=== PATIENT | male | born 1960 | race Caucasian/White ===

== ENCOUNTER → 2021-06-19 10:08 | Outpatient (BNVA) | payer OTHER, SELFPAY | PROVIDERS: Visit Provider Internal Medicine | DX: F11.20 Opioid dependence, uncomplicated (principal); Z51.81 Encounter for therapeutic drug level monitoring; Z79.899 Other long term (current) drug therapy | CPT/HCPCS: 80305 ==

== ENCOUNTER 2021-06-26 10:33 | Outpatient (REF) | payer OTHER, SELFPAY ==
[2021-06-26 17:08] LABS: Fentanyl, urine Not Detected (Not Detect)
== END 2021-06-26 10:34 | disposition home or self-care (01) ==
LOC: CF 10:33
PROVIDERS: Visit Provider Internal Medicine
DX: F11.20 Opioid dependence, uncomplicated (principal); Z79.899 Other long term (current) drug therapy
CPT/HCPCS: 36415; 80307

== ENCOUNTER → 2021-07-04 16:11 | Outpatient (BNVA) | payer OTHER, SELFPAY | PROVIDERS: Visit Provider Nurse Practitioner Psychiatric/Mental Health | DX: Z51.81 Encounter for therapeutic drug level monitoring (principal); F11.90 Opioid use, unspecified, uncomplicated | CPT/HCPCS: 80305 ==

== ENCOUNTER 2021-07-10 15:56 | Outpatient (REF) | payer OTHER, SELFPAY ==
[2021-07-10 18:28] LABS: Fentanyl, urine Not Detected (Not Detect)
== END 2021-07-10 15:57 | disposition home or self-care (01) ==
LOC: HO.LNP 15:56
PROVIDERS: PCP Hospitalist; Visit Provider Internal Medicine
DX: F11.20 Opioid dependence, uncomplicated (principal)
CPT/HCPCS: 80305; 80307

== ENCOUNTER → 2021-07-17 16:00 | Outpatient (BNVA) | payer OTHER, SELFPAY | PROVIDERS: Visit Provider Internal Medicine | DX: Z51.81 Encounter for therapeutic drug level monitoring (principal); F11.90 Opioid use, unspecified, uncomplicated | CPT/HCPCS: 80305 ==

== ENCOUNTER → 2021-07-31 14:46 | Outpatient (BNVA) | payer OTHER, SELFPAY | PROVIDERS: Visit Provider Internal Medicine | DX: F11.99 Opioid use, unspecified with unspecified opioid-induced disorder (principal); Z87.891 Personal history of nicotine dependence; Z88.6 Allergy status to analgesic agent; Z51.81 Encounter for therapeutic drug level monitoring | CPT/HCPCS: 80305 ==

== ENCOUNTER → 2021-08-14 15:48 | Outpatient (BNVA) | payer OTHER, SELFPAY | PROVIDERS: Visit Provider Internal Medicine | DX: F11.99 Opioid use, unspecified with unspecified opioid-induced disorder (principal); Z87.891 Personal history of nicotine dependence; Z88.6 Allergy status to analgesic agent; Z51.81 Encounter for therapeutic drug level monitoring | CPT/HCPCS: 80305 ==

== ENCOUNTER → 2021-08-28 15:44 | Outpatient (BNVA) | payer OTHER, SELFPAY | PROVIDERS: Visit Provider Internal Medicine | DX: F11.20 Opioid dependence, uncomplicated (principal); Z51.81 Encounter for therapeutic drug level monitoring; Z79.899 Other long term (current) drug therapy | CPT/HCPCS: 80305 ==

== ENCOUNTER → 2021-09-25 13:49 | Outpatient (BNVA) | payer OTHER, SELFPAY | PROVIDERS: Visit Provider Internal Medicine | DX: F11.20 Opioid dependence, uncomplicated (principal); Z51.81 Encounter for therapeutic drug level monitoring; Z79.899 Other long term (current) drug therapy | CPT/HCPCS: 80305 ==

== ENCOUNTER → 2021-10-25 14:58 | Outpatient (BNVA) | payer OTHER, SELFPAY | PROVIDERS: Visit Provider Internal Medicine | DX: Z51.81 Encounter for therapeutic drug level monitoring (principal); F11.20 Opioid dependence, uncomplicated | CPT/HCPCS: 80305 ==

== ENCOUNTER → 2021-11-22 15:26 | Outpatient (BNVA) | payer OTHER, SELFPAY | PROVIDERS: Visit Provider Internal Medicine | DX: Z51.81 Encounter for therapeutic drug level monitoring (principal); F11.20 Opioid dependence, uncomplicated | CPT/HCPCS: 80305 ==

== ENCOUNTER → 2021-12-20 15:04 | Outpatient (BNVA) | payer OTHER, SELFPAY | PROVIDERS: Visit Provider Internal Medicine | DX: Z51.81 Encounter for therapeutic drug level monitoring (principal); F11.20 Opioid dependence, uncomplicated | CPT/HCPCS: 80305 ==

== ENCOUNTER → 2021-12-23 15:31 | Outpatient (BNVA) | payer OTHER, SELFPAY | PROVIDERS: Visit Provider Internal Medicine | DX: Z51.81 Encounter for therapeutic drug level monitoring (principal); F11.20 Opioid dependence, uncomplicated | CPT/HCPCS: 80305; 96372 ==

== ENCOUNTER → 2022-01-21 15:19 | Outpatient (BNVA) | payer OTHER, SELFPAY | PROVIDERS: Visit Provider Internal Medicine | DX: Z51.81 Encounter for therapeutic drug level monitoring (principal); F11.20 Opioid dependence, uncomplicated | CPT/HCPCS: 80305; 96372; Q9992 ==

== ENCOUNTER → 2022-02-18 15:43 | Outpatient (BNVA) | payer OTHER, SELFPAY | PROVIDERS: Visit Provider Internal Medicine | DX: Z51.81 Encounter for therapeutic drug level monitoring (principal); F11.20 Opioid dependence, uncomplicated | CPT/HCPCS: 80305; 96372; Q9991 ==

== ENCOUNTER → 2022-03-18 15:41 | Outpatient (BNVA) | payer OTHER, SELFPAY | PROVIDERS: Visit Provider Internal Medicine | DX: Z51.81 Encounter for therapeutic drug level monitoring (principal); F11.20 Opioid dependence, uncomplicated | CPT/HCPCS: 80305; 96372; Q9991 ==

== ENCOUNTER → 2022-04-14 15:28 | Outpatient (BNVA) | payer OTHER, SELFPAY | PROVIDERS: Visit Provider Internal Medicine | DX: Z51.81 Encounter for therapeutic drug level monitoring (principal); F11.20 Opioid dependence, uncomplicated; K59.00 Constipation, unspecified | CPT/HCPCS: 80305; 96372; Q9991 ==

== ENCOUNTER → 2022-07-09 15:38 | Outpatient (BNVA) | payer OTHER, SELFPAY | PROVIDERS: Visit Provider Internal Medicine | DX: Z51.81 Encounter for therapeutic drug level monitoring (principal); F11.20 Opioid dependence, uncomplicated | CPT/HCPCS: 96372 ==

== ENCOUNTER → 2022-08-06 14:57 | Outpatient (BNVA) | payer OTHER, SELFPAY | PROVIDERS: Visit Provider Internal Medicine | DX: F11.99 Opioid use, unspecified with unspecified opioid-induced disorder (principal); Z51.81 Encounter for therapeutic drug level monitoring | CPT/HCPCS: 96372 ==

== ENCOUNTER → 2022-09-03 11:31 | Outpatient (BNVA) | payer OTHER, SELFPAY | PROVIDERS: Visit Provider Internal Medicine | DX: F11.20 Opioid dependence, uncomplicated (principal); Z51.81 Encounter for therapeutic drug level monitoring; Z79.899 Other long term (current) drug therapy | CPT/HCPCS: 96372 ==

== ENCOUNTER 2022-09-03 17:23 | Outpatient (REF) | payer OTHER, SELFPAY ==
[2022-09-03 17:57] LABS: Fentanyl, urine Not Detected (Not Detect)
== END 2022-09-03 17:24 | disposition home or self-care (01) ==
LOC: HO.LNP 17:23
PROVIDERS: Visit Provider Internal Medicine
DX: F11.99 Opioid use, unspecified with unspecified opioid-induced disorder (principal)
CPT/HCPCS: 80307

== ENCOUNTER → 2022-10-07 15:22 | Outpatient (BNVA) | payer OTHER, SELFPAY | PROVIDERS: Visit Provider Nurse Practitioner Psychiatric/Mental Health | DX: F11.20 Opioid dependence, uncomplicated (principal); Z51.81 Encounter for therapeutic drug level monitoring; Z79.899 Other long term (current) drug therapy | CPT/HCPCS: 80305; 96372 ==

== ENCOUNTER → 2022-11-13 15:28 | Outpatient (BNVA) | payer OTHER, SELFPAY | PROVIDERS: Visit Provider Nurse Practitioner Psychiatric/Mental Health | DX: Z51.81 Encounter for therapeutic drug level monitoring (principal); F11.20 Opioid dependence, uncomplicated | CPT/HCPCS: 96372 ==

== ENCOUNTER → 2022-12-18 15:29 | Outpatient (BNVA) | payer OTHER, SELFPAY | PROVIDERS: Visit Provider Nurse Practitioner Psychiatric/Mental Health | DX: Z51.81 Encounter for therapeutic drug level monitoring (principal); F11.20 Opioid dependence, uncomplicated | CPT/HCPCS: 80305; 96372 ==

== ENCOUNTER 2023-09-15 16:24 | Outpatient (AMB) | payer OTHER, SELFPAY ==
--- NOTE | 2023-09-15 16:26 | A.OFFVIS_ITS ---
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 Allergies aspirin Adverse Reaction (Unknown, Verified 09/15/23 16:30) sensitivity Medication List - Last Reconciled 09/15/23 by Rosalie Barrett CNP atorvastatin 40 mg PO DAILY docusate sodium (Colace) 100 mg PO BID 30 days fluoxetine 60 mg PO QAM hydrochlorothiazide 25 mg PO DAILY lactulose 10 grams (15 mL) PO DAILY PRN lisinopril 20 mg PO DAILY naloxone 4 mg/actuation (Narcan) 4 mg intranasal Q2M PRN 30 days HPI MAT Restart/Walk in HPI Details Patient presets as a walk in stating he would like to restart suboxone He was previously a patient of [facility] and at last appt in December recieved Sublocade 100mg injection He states that about 3 months ago, 6 months after last injection, he began to experience muscle spasms in his legs. Over time they have progressively worsened. He reports his PCP prescribed Gabapentin with no relief Denies any other medication trials *Of note, he reproted to RN that during this time he was transitioned from fluoxetine to sertraline. He d/c sertraline 200mg without taper and has since restarted fluoxetine He does not feel any of these medication changes contributed to his sx at all. Current med list lisinopril 20mg prozac 80mg HCTZ 25mg QD Atorvastatin 40mg QD Discussed trial of tizanidine before restarting buprenorphine Patient agreeable [facility] Medical History (Updated 09/16/23 @ 13:49 by Rosalie Barrett CNP) Constipation Opioid use disorder Social History Patient Tobacco Use Status: Former Tobacco user Review of Systems Const Reports as per HPI and Reports no additional complaints Physical Exam Vital Signs: Last Vital Signs Pulse 80 09/15/23 16:29 BP 124/76 09/15/23 16:29 Pulse Ox 98 09/15/23 16:29 Oxygen Delivery Method Room Air 09/15/23 16:29 Const General: cooperative, healthy appearing and no acute distress Orientation/consciousness: patient oriented x3 Neuro General: patient oriented x3 Assessment & Plan Assessment & Plan (1) Muscle spasm: Code(s): M62.838 - Other muscle spasm Plan: * tizanidine 4mg QHS * patient to call on to update and determine next steps (2) Opioid use disorder, mild, in sustained remission: Code(s): F11.11 - Opioid abuse, in remission Plan: * has been in sustained recovery for several years Medications: New tizanidine 4 mg PO BEDTIME PRN 10 caps 0RF muscle spasticity Coding Level of Care Code Est Pt Level 3 (60901) Diagnoses Muscle spasm M62.838 Opioid use disorder, mild, in sustained remission F11.11
[2023-09-15 16:29] VITALS: BP 124/76; PULSE 80; O2SAT 98
== END 2023-09-15 16:58 | disposition home or self-care (01) ==
PROVIDERS: PCP Internal Medicine; Visit Provider Nurse Practitioner Psychiatric/Mental Health
DX: F11.11 Opioid abuse, in remission (principal); M62.838 Other muscle spasm
CPT/HCPCS: 99213

== ENCOUNTER → 2023-09-15 16:24 | Outpatient (BNVA) | payer OTHER, SELFPAY | PROVIDERS: PCP Internal Medicine; Visit Provider Nurse Practitioner Psychiatric/Mental Health ==

== ENCOUNTER 2023-09-21 15:28 | Outpatient (AMB) | payer OTHER, SELFPAY ==
--- NOTE | 2023-09-21 15:31 | A.OFFVIS_ITS ---
Intake Intake Visit Reasons: MAT Visit Toddler Caregiver Required: No Allergies aspirin Adverse Reaction (Unknown, Verified 09/15/23 16:30) sensitivity HPI MAT Visit HPI Details Patient presents for follow up Still having restless legs at night Bought suboxone and took 2mg and sx resolved would like to restart suboxone [facility] Medical History (Updated 09/16/23 @ 13:49 by Rosalie Barrett CNP) Constipation Opioid use disorder Social History Patient Tobacco Use Status: Former Tobacco user Review of Systems Const Reports as per HPI Physical Exam Const General: cooperative, healthy appearing and no acute distress Orientation/consciousness: patient oriented x3 Neuro General: patient oriented x3 Assessment & Plan Assessment & Plan (1) Opioid use disorder, mild, in sustained remission: Code(s): F11.11 - Opioid abuse, in remission Plan: * suboxone 2 mg QD * follow up 4 weeks Medications: New buprenorphine-naloxone 2-0.5 mg (Suboxone) 1 film sublingual DAILY 30 ea 0RF Coding Level of Care Code Est Pt Level 3 (27016) Diagnoses Opioid use disorder, mild, in sustained remission F11.11
== END 2023-09-21 15:51 | disposition home or self-care (01) ==
PROVIDERS: PCP Internal Medicine; Visit Provider Nurse Practitioner Psychiatric/Mental Health
DX: F11.11 Opioid abuse, in remission (principal)
CPT/HCPCS: 99213

== ENCOUNTER → 2023-09-21 15:28 | Outpatient (BNVA) | payer OTHER, SELFPAY | PROVIDERS: PCP Internal Medicine; Visit Provider Nurse Practitioner Psychiatric/Mental Health ==

== ENCOUNTER 2023-10-19 15:10 | Outpatient (AMB) | payer OTHER, SELFPAY ==
--- NOTE | 2023-10-19 15:15 | A.OFFVISCC_ITS ---
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 Denies any side effects, including constipation. Enjoyed 2 week vacation with family over Beth and New Years. No questions or concerns at this time --will be discussing with PCP if she will take over prescribing suboxone. [facility] Medical History (Updated 10/22/23 @ 09:57 by Rosalie Barrett CNP) Constipation Opioid use disorder Social History Patient Tobacco Use Status: Former Tobacco user Review of Systems Const Reports as per HPI and Reports no additional complaints Physical Exam Vital Signs: Last Vital Signs Pulse 74 10/19/23 15:16 BP 116/68 10/19/23 15:16 Pulse Ox 95 10/19/23 15:16 Oxygen Delivery Method Room Air 10/19/23 15:16 Const General: cooperative and healthy appearing Orientation/consciousness: patient oriented x3 Neuro General: patient oriented x3 Assessment & Plan Assessment & Plan (1) Opioid use disorder, mild, in sustained remission: Code(s): F11.11 - Opioid abuse, in remission Plan: * continue suboxone at current dose * will discuss with PCP regarding ongoing prescriptions * follow up 2 months Medications: Refilled buprenorphine-naloxone 2-0.5 mg (Suboxone) 1 film sublingual DAILY 30 ea 1RF Coding Level of Care Code Est Pt Level 3 (62547) Diagnoses Opioid use disorder, mild, in sustained remission F11.11
[2023-10-19 15:16] VITALS: BP 116/68; PULSE 74; O2SAT 95
== END 2023-10-19 15:35 | disposition home or self-care (01) ==
PROVIDERS: PCP Internal Medicine; Visit Provider Nurse Practitioner Psychiatric/Mental Health
DX: F11.11 Opioid abuse, in remission (principal)
CPT/HCPCS: 99213

== ENCOUNTER → 2023-10-19 15:10 | Outpatient (BNVA) | payer OTHER, SELFPAY | PROVIDERS: PCP Internal Medicine; Visit Provider Nurse Practitioner Psychiatric/Mental Health ==

== ENCOUNTER 2023-12-30 15:53 | Outpatient (AMB) | payer OTHER, SELFPAY ==
--- NOTE | 2023-12-30 15:43 | A.OFFVISCC_ITS ---
Intake Vital Signs 12/30/23 15:46 BP 120/70 Blood Pressure Location Lt brachial Position Sitting Respiration 20 Pulse 88 Pulse Source Pulse Oximeter Pulse Oximetry (%) 98 Oxygen Delivery Method Room Air Intake Visit Reasons: mat visit Allergies aspirin Adverse Reaction (Unknown, Verified 10/19/23 15:18) sensitivity HPI mat visit HPI Details Patient presents for MAT visit Has no recovery concerns Reports he has had no incidents of restless legs Has had cold sore to right side of lower lip x 2 weeks, reports this happens frequently at change of season for him Going to the gym, working on getting fit for golf [facility] Medical History (Updated 12/30/23 @ 16:05 by Pam Iverson NP) Constipation Opioid use disorder Social History Patient Tobacco Use Status: Former Tobacco user Review of Systems Const Reports as per HPI Physical Exam Vital Signs: Last Vital Signs Pulse 88 12/30/23 15:46 Resp 20 12/30/23 15:46 BP 120/70 12/30/23 15:46 Pulse Ox 98 12/30/23 15:46 Oxygen Delivery Method Room Air 12/30/23 15:46 Const General: cooperative and comfortable Skin Lesions: lesion noted (right side lower lip) Psych Appearance: grossly normal and well kempt Mental Status: mental status grossly normal Speech and movement: Normal speech and movement present Affect: normal affect Thought process: Normal thought process present Thought content: Normal thought content present Assessment & Plan Assessment & Plan (1) Herpes simplex: Code(s): B00.9 - Herpesviral infection, unspecified Plan: -Acyclovir rx sent to pharmacy, pt has previously taken with good effect (2) Opioid use disorder, mild, in sustained remission: Code(s): F11.11 - Opioid abuse, in remission Plan: -Mass pat reviwewed, no refill indicated at this time -Follow up 3 months -Reviewed he can call with questions or concerns Medications: New acyclovir 400 mg PO TID 15 tabs 0RF Discontinued tizanidine Discontinued Reason: Patient Completed Course 4 mg PO BEDTIME PRN 10 caps 0RF muscle spasticity Coding Level of Care Code Est Pt Level 3 (62087) Diagnoses Herpes simplex B00.9 Opioid use disorder, mild, in sustained remission F11.11
[2023-12-30 15:46] VITALS: BP 120/70; PULSE 88; RESP 20; O2SAT 98
== END 2023-12-30 15:59 | disposition home or self-care (01) ==
PROVIDERS: PCP Internal Medicine; Visit Provider Nurse Practitioner Family
DX: F11.11 Opioid abuse, in remission (principal); B00.9 Herpesviral infection, unspecified
CPT/HCPCS: 99213

== ENCOUNTER 2024-03-23 16:00 | Outpatient (AMB) | payer OTHER, SELFPAY ==
--- NOTE | 2024-03-23 16:00 | MHC.AM.SUB ---
Vital Signs 03/23/24 16:03 BP 152/84 H Blood Pressure Location Lt brachial Pulse 84 Pulse Source Pulse Oximeter Pulse Oximetry (%) 94 Oxygen Delivery Method Room Air Intake Visit Reasons: mat visit Allergies aspirin Adverse Reaction (Unknown, Verified 10/19/23 15:18) sensitivity HPI HPI mat visit: Details: Patient presents for MAT appointment Has been tolerating 2mg suboxone daily Denies any concerns for side effects Has been keeping busy playing golf Working on losing weight HPI Comments Details: Patient presents for MAT visit [facility] Medical History (Updated 12/30/23 @ 16:05 by Pam Iverson NP) Constipation Opioid use disorder Social History Patient Tobacco Use Status: Former Tobacco user Review of Systems Const Reports as per HPI Physical Exam Const General: cooperative and no acute distress Resp Effort & Inspection: normal respiratory effort and able to speak in complete sentences Psych Appearance: grossly normal Mental Status: mental status grossly normal Speech and movement: Normal speech and movement present Affect: normal affect Attitude: cooperative Thought process: Normal thought process present Assessment & Plan Assessment & Plan (1) Opioid use disorder, mild, in sustained remission: Code(s): F11.11 - Opioid abuse, in remission Category: Medical Plan: -ANNIE ricks reviewed -Refill buprenorphine sent to pharmacy -Follow up 4 months Medications: Refilled buprenorphine-naloxone 2-0.5 mg (Suboxone) 1 film sublingual DAILY 30 ea 3RF
[2024-03-23 16:03] VITALS: BP 152/84; PULSE 84; O2SAT 94
== END 2024-03-23 16:11 | disposition home or self-care (01) ==
PROVIDERS: PCP Internal Medicine; Visit Provider Nurse Practitioner Family
DX: F11.11 Opioid abuse, in remission (principal)
CPT/HCPCS: 99213

== ENCOUNTER → 2024-03-23 16:00 | Outpatient (BNVA) | payer OTHER, SELFPAY | PROVIDERS: PCP Internal Medicine; Visit Provider Nurse Practitioner Family ==

== ENCOUNTER 2024-07-13 15:15 | Outpatient (AMB) | payer OTHER, SELFPAY ==
--- NOTE | 2024-07-13 15:53 | A.OFFVISCC_ITS ---
Intake Visit Reasons: mat visit Allergies aspirin Adverse Reaction (Unknown, Verified 10/19/23 15:18) sensitivity HPI HPI mat visit: Details: Patient presents for follow up increased dose to 2mg BID Tolerating dose no issues with sleep PFSH Medical History (Updated 12/30/23 @ 16:05 by Pam Iverson NP) Constipation Opioid use disorder Social History Patient Tobacco Use Status: Former Tobacco user Review of Systems Const Reports as per HPI and Reports no additional complaints Physical Exam Const General: cooperative and no acute distress Psych Appearance: grossly normal Mental Status: mental status grossly normal Speech and movement: Normal speech and movement present Affect: normal affect Attitude: cooperative Thought process: Normal thought process present Assessment & Plan Assessment & Plan (1) Opioid use disorder, mild, in sustained remission: Code(s): F11.11 - Opioid abuse, in remission Category: Medical Plan: * continue suboxone at current dose * follow up 4 months Medications: Changed From buprenorphine-naloxone 2-0.5 mg 1 film sublingual DAILY 30 ea 3RF To buprenorphine-naloxone 2-0.5 mg (Suboxone) 1 film sublingual BID 60 ea 3RF
== END 2024-07-13 16:21 | disposition home or self-care (01) ==
PROVIDERS: PCP Internal Medicine; Visit Provider Nurse Practitioner Psychiatric/Mental Health
DX: F11.11 Opioid abuse, in remission (principal)
CPT/HCPCS: 99213

== ENCOUNTER → 2024-07-13 15:15 | Outpatient (BNVA) | payer OTHER, SELFPAY | PROVIDERS: PCP Internal Medicine; Visit Provider Nurse Practitioner Psychiatric/Mental Health ==

== ENCOUNTER 2024-10-31 15:36 | Outpatient (AMB) | payer OTHER, SELFPAY ==
--- NOTE | 2024-10-31 15:51 | MHC.AM.SUB ---
Intake Visit Reasons: mat visit Allergies aspirin Adverse Reaction (Unknown, Verified 10/19/23 15:18) sensitivity HPI HPI mat visit: Details: Patient presents for follow up Currently prescribed Suboxone 2mg BID Tolerating current dose Tried to lower dose, but found that he was unable to sleep Review of Systems Const Reports as per HPI Physical Exam Const General: cooperative and no acute distress Psych Appearance: grossly normal Mental Status: mental status grossly normal Speech and movement: Normal speech and movement present Affect: normal affect Attitude: cooperative Thought process: Normal thought process present [facility] Medical History (Updated 12/30/23 @ 16:05 by Pam Iverson NP) Constipation Opioid use disorder Social History Patient Tobacco Use Status: Former Tobacco user Assessment & Plan Assessment & Plan (1) Opioid use disorder, mild, in sustained remission: Code(s): F11.11 - Opioid abuse, in remission Category: Medical Plan: continue suboxone at current dose follow up 4 months
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
--- OUTSIDE RECORDS SUMMARY | 2024-10-31 19:34 | XMS_ITS | Continuity of Care Document ---
Author Organization [facility] [place] Address [address] [place] [address]- Care Team Providers Care Ethylbenzene Cracking Supervisor Name Role Phone Enrique Rolon DO Primary Care Physician [phone] Encounter [facility] Date(s): 09/23/24 - 10/23/24 [facility] [place] Adult [address] [place] [address]- Encounter Type: Triage Allergies, Adverse Reactions, Alerts Substance Criticality Severity Reaction Reaction Severity Status aspirin upset stomach Active Immunizations Given and Recorded Vaccine Date Status Refusal Reason tetanus-diphtheria toxoids (Td) 01/23/22 Given tetanus-diphtheria toxoids (Td) 05/01/13 Recorded SARS-CoV-2 (COVID-19) mRNA BNT-162b2 vac 10/12/21 Recorded SARS-CoV-2 (COVID-19) mRNA BNT-162b2 vac 01/09/21 Recorded SARS-CoV-2 (COVID-19) mRNA BNT-162b2 vac 12/19/20 Recorded influenza virus vaccine, inactivated 09/05/16 Give n influenza virus vaccine, inactivated 11/06/15 Give n FluLaval (oldterm) 06/02/12 Given Tet/Diphth/Acel, Pertussis (oldterm) 10/17/10 Give n Fluzone (oldterm) 10/12/09 Given Medications Abilify 5 mg oral tablet 5 mg, 1, tablet, By Mouth, Daily, # 90 tablet, Refills 3, Tot. Refills 3, Maintenance, 09/15/23 3:40:00 PM EST, Route to Pharmacy Electronically, [facility], Partial fill upon patient request if the prescription is for a schedule II opioid drug., 170, cm, 09/15/23 15:25:00 EST, Height, 109.198, kg, 06/09/23 10:32:00 EDT, Dry Weight Start Date: 09/15/23 Status: Ordered Quantity: 90.0 Unit: tablet Repeat number: 4 Indication: Major depressive disorder, single episode, severe without psychotic features acyclovir 400 mg oral tablet 1 tablet = 400 mg, By Mouth, 3 times a day, PRN cold sores, # 30 tablet, 2 Refills, Maintenance, 02/27/22 3:48:00 PM EDT, Tablet, [facility], 170, cm, 01/23/22 7:17:00 EDT, Height, 99, kg, 04/20/20 8:02:00 EDT, Dry Weight Start Date: 02/27/22 Status: Ordered Quantity: 30.0 Unit: tablet Repeat number: 3 atorvastatin 40 mg oral tablet 1 tablet, By Mouth, Daily, # 90 tablet, 3 Refills, Maintenance, 08/29/24 1:13:00 PM EST, [facility], 170, cm, 06/20/24 16:00:00 EDT, Height, 109.198, kg, 06/09/23 10:32:00 EDT, Dry Weight Start Date: 08/29/24 Status: Ordered Quantity: 90.0 Unit: tablet Repeat number: 1 FLUoxetine 40 mg oral capsule 2 capsule = 80 mg, By Mouth, Daily, # 180 capsule, 0 Refills, Maintenance, 10/20/24 12:17:00 PM EST,Capsule, [facility], Partial fill upon patient request if the prescription is for a schedule II opioid drug., 170, cm, 06/20/24 16:00:00 EDT, Height, 109.198, kg, 06/09/23 10:32:00 EDT, Dry Weight Start Date: 10/20/24 Status: Ordered Quantity: 180.0 Unit: capsule Repeat number: 1 Indication: Major depressive disorder, single episode, severe without psychotic features hydrochlorothiazide 25 mg oral tablet 1, tablet, By Mouth, Daily, # 90 tablet, Refills 0, Maintenance, 09/23/24 3:51:00 PM EST, Route to Pharmacy Electronically, [email or web address], 170, cm, 06/20/24 16:00:00 EDT, Height, 109.198, kg, 06/09/23 10:32:00 EDT, Dry Weight Start Date: 09/23/24 Status: Ordered Quantity: 90.0 Unit: tablet Repeat number: 1 hydrOXYzine hydrochloride 25 mg oral tablet 1 tablet, By Mouth, 4 times a day, PRN NEEDED FOR ANXIETY, MAY TAKE 2 TABLETS 4 TIMES A DAY NEEDED, # 90 tablet, 5 Refills, Maintenance, 10/06/23 9:45:00 AM EST, [email or web address], 170,cm, 09/15/23 15:25:00 EST, Height, 109.198, kg, 06/09/23 10:32:00 EDT, Dry Weight Start Date: 10/06/23 Status: Ordered Quantity: 90.0 Unit: tablet Repeat number: 1 Knee brace - left Knee brace - left, See Instructions, # 1 each, Refills 0, Tot. Refills 0, Maintenance, Neoprene brace with hole for patella, no hinges, strap above and below patella, horseshoe-shaped pad with opening inferiorly, 09/05/16 3:25:43 PM EST, Compound Start Date: 09/05/16 Status: Ordered Quantity: 1.0 Unit: each Repeat number: 1 lisinopril 20 mg oral tablet 1, tablet, By Mouth, Daily, # 90 tablet, Refills 3, Maintenance, 09/23/24 3:51:00 PM EST, Route to Pharmacy Electronically, [email or web address], 170, cm, 06/20/24 16:00:00 EDT, Height, 109.198, kg, 06/09/23 10:32:00 EDT, Dry Weight Start Date: 09/23/24 Status: Ordered Quantity: 90.0 Unit: tablet Repeat number: 1 triamcinolone 0.1% topical cream 1 application, Topically, 2 times a day, # 60 Gm, 0 Refills, Maintenance, 03/26/22 11:16:00 AM EDT, Cream, [email or web address], Partial fill upon patient request if the prescription is for a schedule II opioid drug., 1 application Topically 2 times a day, 170, cm, 03/26/22 10:56:00 EDT, Height, 99, kg, 04/20/20 8:02:00 EDT, Dry Weight Start Date: 03/26/22 Status: Ordered Quantity: 60.0 Unit: g Repeat number: 1 Problem List Condition Confirmation Course Effective Dates Status H ealth Status Informant Alcoholism Confirmed Active Allergic rhinitis Confirmed 06/02/12 Active Essential hypertension Confirmed Active Family history of hemochromatosis Confirmed Active Fatigue Confirmed Active GERD - Gastro-esophageal reflux disease Confirmed Active Herpes labialis Confirmed Active History of opioid abuse Confirmed Active History of smoking Confirmed Active IFG (impaired fasting glucose) Confirmed Active Mixed hyperlipidemia Confirmed Active DIONE (obstructive sleep apnea) Confirmed Active Panic attacks Confirmed Active Major depression, recurrent Confirmed Active RLS (restless legs syndrome) Confirmed Active Alcohol use disorder, severe, dependence Confirmed Active Severe obesity (BMI 35.0-39.9) with comorbidity Confirmed Active Major depressive disorder, recurrent, severe w/o psychotic behavior Confirmed Active Hernia, umbilical Confirmed Active Social History Social History Type Response Smoking Status Never (less than 100 in lifetime);Never entered on: 04/09/23 Sex Sex Representation Male (finding) Patient Care team information Care Team Personnel Name: Enrique Rolon DO Position: [facility] Physician - Primary Care Member Role: PCP Address: [address] [place] [address]- Telecom: Care Team Related Persons Name: CECIL CALL Name: MARY GILL Name: ROSELYN BANG Insurance Providers Guarantor name: [facility] Information #: 1 Payer: [facility] Member Number: NA Policy Number: NA Group Number: NA
--- OUTSIDE RECORDS SUMMARY | 2024-10-31 19:34 | XMS_ITS | Continuity of Care Document ---
Author Organization [facility] Address [address] [place] [address]- Care Team Providers Care Stiff Leg Derrick Operator Name Role Phone Enrique Rolon DO Primary Care Physician [id number] Date(s): 06/23/24 - 10/21/24 [facility] [address] [place] [address]- Attending Physician: Enrique Rolon DO Encounter Type: Pre Office Visit Allergies, Adverse Reactions, Alerts Substance Criticality Severity [...] Refills, Maintenance, 02/27/22 3:48:00 PM EDT, Tablet, [facility], 170, cm, 01/23/22 7:17:00 EDT, Height, 99, kg, 04/20/20 8:02:00 EDT, Dry Weight Start Date: 02/27/22 Status: Ordered Quantity: 30.0 Unit: tablet Repeat number: 3 atorvastatin 40 mg oral tablet 1 tablet, By Mouth, Daily, # 90 tablet, 3 Refills, Maintenance, 08/29/24 1:13:00 PM EST, [facility], 170, cm, 06/20/24 16:00:00 EDT, Height, 109.198, kg, 06/09/23 10:32:00 EDT, Dry Weight Start Date: 08/29/24 Status: Ordered Quantity: 90.0 Unit: tablet Repeat number: 1 FLUoxetine 40 mg oral capsule 2 capsule = 80 mg, By Mouth, Daily, # 180 capsule, 0 Refills, Maintenance, 10/20/24 12:17:00 PM EST,Capsule, [facility], Partial fill upon patient request [...] 3:51:00 PM EST, Route to Pharmacy Electronically, [facility], 170, cm, 06/20/24 16:00:00 EDT, [...] 5 Refills, Maintenance, 10/06/23 9:45:00 AM EST, [facility], 170,cm, 09/15/23 15:25:00 EST, Height, [...] 3:51:00 PM EST, Route to Pharmacy Electronically, [facility], 170, cm, 06/20/24 16:00:00 EDT, Height, 109.198, kg, 06/09/23 10:32:00 EDT, Dry Weight Start Date: 09/23/24 Status: Ordered Quantity: 90.0 Unit: tablet Repeat number: 1 triamcinolone 0.1% topical cream 1 application, Topically, 2 times a day, # 60 Gm, 0 Refills, Maintenance, 03/26/22 11:16:00 AM EDT, Cream, [facility], Partial fill upon patient request [...] Team Personnel Name: Enrique Rolon DO Position: [facility] Physician - Primary Care Member Role: PCP Address: [address] [place] [address]- Telecom: Care Team Related Persons Name: CECIL CALL Name: MARY GILL Name: ROSELYN BANG Insurance Providers Guarantor name: ENRIQUE BANG Health Plan Information #: 1 Payer: [facility] Member Number: [id number] Policy Number: NA Group Number: [id number] Health Plan Information #: 2 Payer: [facility] Member Number: [id number] Policy Number: NA Group Number: NA
--- OUTSIDE RECORDS SUMMARY | 2024-10-31 19:34 | XMS_ITS | Continuity of Care Document ---
Author Organization [facility] Address [address] [place] [address]- Care Team Providers Care Hand Hose Cutter Name Role Phone Enrique Rolon DO Primary Care Physician Encounter [facility] Date(s): 09/21/24 - 10/21/24 [facility] [address] [place] [address]- Attending Physician: Admtr, Ar8 Admitting Physician: Admtr, ArTanya Referring Physician: Admtr, Ar8 Encounter Type: Triage Allergies, Adverse Reactions, Alerts [...] EST, Route to Pharmacy Electronically, [facility], Partial fill upon patient request [...] 02/27/22 3:48:00 PM EDT, Tablet, [facility], 170, cm, 01/23/22 7:17:00 EDT, Height, 99, kg, 04/20/20 8:02:00 EDT, Dry Weight Start Date: 02/27/22 Status: Ordered Quantity: 30.0 Unit: tablet Repeat number: 3 atorvastatin 40 mg oral tablet 1 tablet, By Mouth, Daily, # 90 tablet, 3 Refills, Maintenance, 08/29/24 1:13:00 PM EST, [facility], 170, cm, 06/20/24 16:00:00 EDT, Height, 109.198, kg, 06/09/23 10:32:00 EDT, Dry Weight Start Date: 08/29/24 Status: Ordered Quantity: 90.0 Unit: tablet Repeat number: 1 FLUoxetine 40 mg oral capsule 2 capsule = 80 mg, By Mouth, Daily, # 180 capsule, 0 Refills, Maintenance, 10/20/24 12:17:00 PM EST,Capsule, [facility], Partial fill [...] 3:51:00 PM EST, Route to Pharmacy Electronically, [facility], 170, cm, 06/20/24 16:00:00 EDT, [...] 5 Refills, Maintenance, 10/06/23 9:45:00 AM EST, [facility], 170,cm, 09/15/23 15:25:00 EST, Height, [...] 3:51:00 PM EST, Route to Pharmacy Electronically, [facility], 170, cm, 06/20/24 16:00:00 EDT, Height, 109.198, kg, 06/09/23 10:32:00 EDT, Dry Weight Start Date: 09/23/24 Status: Ordered Quantity: 90.0 Unit: tablet Repeat number: 1 triamcinolone 0.1% topical cream 1 application, Topically, 2 times a day, # 60 Gm, 0 Refills, Maintenance, 03/26/22 11:16:00 AM EDT, Cream, [facility], Partial fill [...] Team Personnel Name: Enrique Rolon DO Position: [facility] Physician - Primary Care Member Role: PCP Address: [address] [place] [address] Telecom: Care Team Related Persons Name: CECIL CALL Name: MARY GILL Name: ROSELYN BANG Insurance Providers Guarantor name: ENRIQUE BANG [facility] Information #: 1 Payer: [facility] Member Number: NA Policy Number: NA Group Number: NA
== END 2024-10-31 16:10 | disposition home or self-care (01) ==
PROVIDERS: PCP Internal Medicine; Visit Provider Nurse Practitioner Psychiatric/Mental Health
DX: F11.11 Opioid abuse, in remission (principal)
CPT/HCPCS: 99213

== ENCOUNTER → 2024-10-31 15:36 | Outpatient (BNVA) | payer OTHER, SELFPAY | PROVIDERS: PCP Internal Medicine; Visit Provider Nurse Practitioner Psychiatric/Mental Health ==

== ENCOUNTER 2025-03-01 15:30 | Outpatient (AMB) | payer OTHER, SELFPAY ==
--- NOTE | 2025-03-01 15:30 | MHC.OFFVIS ---
Vital Signs 03/01/25 15:33 Pulse 97 Pulse Source Pulse Oximeter Pulse Oximetry (%) 97 Oxygen Delivery Method Room Air Intake Visit Reasons: mat visit Allergies aspirin Adverse Reaction (Unknown, Verified 03/01/25 15:34) sensitivity HPI HPI mat visit: Details: He is doing well on current dose. PFSH Medical History Constipation Opioid use disorder Social History Patient Tobacco Use Status: Former Tobacco user Physical Exam Vital Signs: Last Vital Signs Pulse 97 03/01/25 15:33 Pulse Ox 97 03/01/25 15:33 Oxygen Delivery Method Room Air 03/01/25 15:33 Const General: cooperative Assessment & Plan Assessment & Plan (1) Opioid use disorder, mild, in sustained remission: Comment: He is doing well Code(s): F11.11 - Opioid abuse, in remission Category: Medical Plan: Continue current care. See as scheduled. Medications: New buprenorphine-naloxone 2-0.5 mg (Suboxone) place 1 strip/tab under (each) side of tongue 1 film sublingual BID 60 ea 3RF 30 days Coding Level of Care Code Est Pt Level 3 (12905) Diagnoses Opioid use disorder, mild, in sustained remission F11.11
[2025-03-01 15:33] VITALS: PULSE 97; O2SAT 97
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
== END 2025-03-01 16:23 | disposition home or self-care (01) ==
LOC: HO.HCC 15:30
PROVIDERS: PCP Internal Medicine; Visit Provider Internal Medicine
DX: F11.11 Opioid abuse, in remission (principal)
CPT/HCPCS: 99213

== ENCOUNTER 2025-06-28 15:39 | Outpatient (AMB) | payer OTHER, SELFPAY ==
--- NOTE | 2025-06-28 15:39 | MHC.OFFVIS ---
Intake Visit Reasons: MAT Allergies aspirin Adverse Reaction (Unknown, Verified 03/01/25 15:34) sensitivity HPI Comments Details: History of Present Illness The patient is a 64-year-old male presenting with opioid use disorder. He reports feeling well and that his condition is currently stable. The patient acknowledges that he would seek counseling if needed, though he currently perceives no necessity for it. He reports no issues with constipation at this time. He also mentions an interest in getting a pet, such as a cat or a dog, with his . Currently, there are no other reported issues or complications. The patient is seen every four months, with stable condition management, and continues satisfactorily on his current dosing regimen. Review of Systems - Gastrointestinal: Denies constipation. Physical Exam - Vitals- Stable. Results Plan Patient was informed and verbally consented to the use of an ambient scribe for clinic note documentation during this visit. 1. Opioid use, unspecified, uncomplicated F11.90 The patient is stable with his current opioid use disorder management and doing well on his dosing regimen. A prescription for a one-month supply with three refills has been provided. He indicated no need for counseling at present but is open to it if necessary. Regular follow-up is scheduled every four months, with instructions to reach out if any new concerns develop. Discussion Notes I discussed with the patient the current stability of his opioid use disorder. I provided him with information on the continuation of his current treatment regimen, including the benefits of regular monitoring. No new interventions were deemed necessary at this time, and the patient is aware of the importance of contacting the clinic if any issues arise before his next scheduled visit. We agreed on a prescription for his current medication with three monthly refills, and the patient expressed understanding and agreement with the management plan. Medical Decision Making In evaluating this patient with opioid use disorder, I noted his stability and lack of current side effects, including constipation. The decision to continue his current medication regimen was based on the positive response and lack of complications. While counseling is not needed at present, I considered it as an option should his condition require additional support in future visits. Scheduled follow-ups and contingency options were tailored to manage potential future changes in his condition effectively. Patient Instructions - Continue current medication as prescribed. - Attend follow-up appointment in four months. - Seek counseling if conditions or needs change. - Contact the clinic if any issues arise before the next scheduled visit. - Consider getting a pet, such as a cat or dog, as discussed. PFSH Medical History Constipation Opioid use disorder Social History Patient Tobacco Use Status: Former Tobacco user Assessment & Plan Assessment & Plan (1) Opioid use disorder, mild, in sustained remission: Comment: He is doing well Code(s): F11.11 - Opioid abuse, in remission Category: Medical Plan: na Plan na Medications: New buprenorphine-naloxone 2-0.5 mg (Suboxone) place 1 strip/tab under (each) side of tongue 1 film sublingual BID 60 ea 3RF 30 days Coding Level of Care Code Est Pt Level 3 (98170) Diagnoses Opioid use disorder, mild, in sustained remission F11.11
--- OUTSIDE RECORDS SUMMARY | 2025-06-28 17:54 | XMS_ITS | Patient Health Record ---
Author Organization [facility] Address [address] [place] [address] Care Team Providers Care Monument Erector Name Role Phone Joshua Kim Jr Reason For Referral No Information Plan Of Treatment No Information
== END 2025-06-28 16:22 | disposition home or self-care (01) ==
LOC: HO.HCC 15:39
PROVIDERS: PCP Internal Medicine; Visit Provider Internal Medicine
DX: F11.11 Opioid abuse, in remission (principal)
CPT/HCPCS: 99213